=== PATIENT | female | born 1965 | race Caucasian/White ===

== ENCOUNTER 2017-12-14 14:45 | Emergency (ER) | payer MEDICAID ==
[~2017-12-14] VITALS: Ht 175.3 cm; Wt 77.1 kg
[~2017-12-14 14:45] MED LIST: HYDROCODON-ACE1 EACH PO; NEURONTIN 300300 M1 PO; PAIN & FEVER500 MG PO; PAXIL20 MG PO; PERCOCET 5-3251 EACH PO; PRILOSEC40 MG PO; PROPRANOLOL 20M20 M1 PO; SKELAXIN 800 M800 M1 PO; TRAMADOL 50 MG50 MG PO
[2017-12-14 15:34] LABS: INFLUENZA A ANTIGEN None Detected (None Detect); INFLUENZA B ANTIGEN None Detected (None Detect)
[2017-12-14] MEDS ORDERED: VENTOLIN HFA 1818 GM INH (15:42)
[2017-12-14] MEDS ORDERED: BENZONATATE200 MG PO (15:42)
[2017-12-14] MEDS ORDERED: PREDNISONE 10 M10 M1 PO (15:42)
[2017-12-14] MEDS ORDERED: AMOXICILLIN 50500 M1 PO (15:43)
[2017-12-14 15:48] VITALS: BP 136/88
== END 2017-12-14 15:49 | disposition home or self-care (01) ==
LOC: M.ERS 14:45
PROVIDERS: Nurse Practitioner
DX: J40 Bronchitis, not specified as acute or chronic (principal); M19.90 Unspecified osteoarthritis, unspecified site; M79.7 Fibromyalgia; J44.9 Chronic obstructive pulmonary disease, unspecified; Z90.49 Acquired absence of other specified parts of digestive tract; Z98.84 Bariatric surgery status; F17.210 Nicotine dependence, cigarettes, uncomplicated